=== PATIENT | male | born 1955 | race Two or more races ===

== ENCOUNTER 2017-08-13 19:01 | Emergency (ER) | payer MEDICAID ==
[~2017-08-13] VITALS: Ht 162.6 cm; Wt 79.8 kg
[2017-08-13 19:17] LABS: Urine RBC None Seen /hpf (0 - 3)
[2017-08-13 19:25] LABS: Urine Bilirubin Negative (Negative); Urine Blood Negative /uL (Negative); Urine Glucose Normal (Normal); Urine Ketone Negative (Negative); Urine Nitrite Negative (Negative); Urine Urobilinogen Normal (Negative); Urine pH 6.5 (5.0-8.0)
[2017-08-13 19:27] LABS: Urine Color Straw (Yellow)
[2017-08-13 19:27] LABS: Basophils # (auto) 0.1 uL; Eosinophils # (auto) 0.5 uL; Eosinophils % (auto) 4.6 % (0.0-7.0); Hematocrit 40.1 % (41.0-53.0); Hemoglobin 13.3 g/dL (13.5-17.5); Lymphocytes # (auto) 2.3 uL; Mean Corpuscular Hemoglobin 27.1 pg (28.0-32.0); Mean Corpuscular Hgb Conc. 33.1 g/dL (32.0-36.0); Mean Corpuscular Volume 82.1 fL (80.0-100.0); Mean Platelet Volume 8.1 fL (6.9-10.8); Monocytes # (auto) 1.1 uL; Monocytes % (auto) 11.1 % (0.0-12.0); Neutrophils # (auto) 6.3 uL; Neutrophils % (auto) 61.3 % (37.0-80.0); Nucleated Red Blood Cells % 0.3 %; Platelet Count (auto) 234 10^3/uL (140-450); Red Cell Distribution Width 14.5 % (11.8-14.3); White Blood Cell 10.3 10^3/uL (4.4-10.8)
[2017-08-13 19:48] LABS: Albumin 3.9 g/dL (3.4-5.0); BUN/Creatinine Ratio 13.3; Calcium 9.1 mg/dL (8.5-10.1)
[2017-08-13 19:51] LABS: Bilirubin, Total 0.5 mg/dL (0.2-1.0)
[2017-08-13 20:46] VITALS: BP 157/94
[2017-08-13] MEDS ORDERED: ONDANSETRON HCL 4 MG/2 ML VIAL IV ONE (21:30)
[2017-08-13] MEDS ORDERED: SODIUM CHLORIDE 0.9% 500 ML IV ONE (21:30)
== END 2017-08-13 22:23 | disposition home or self-care (01) ==
LOC: ER 19:01
DX: K52.9 Noninfective gastroenteritis and colitis, unspecified (principal)
CPT/HCPCS: 36415; 74176; 80053; 80307; 81001; 82150; 83690; 85025; 93005; 96374; 99285; J2405; J7040

== ENCOUNTER 2021-04-10 17:05 | Emergency (ER) | payer MEDICAID ==
[~2021-04-10] VITALS: Ht 175.3 cm; Wt 74.8 kg
[2021-04-10 19:56] VITALS: BP 132/82
[2021-04-10] MEDS ORDERED: MAGNESIUM CITRATE SOLUTION 300 ML BTL PO ONE (20:30)
== END 2021-04-10 20:48 | disposition home or self-care (01) ==
LOC: ER 17:05 → EDBD 17:05 → ER 20:48
DX: K59.00 Constipation, unspecified (principal); F31.9 Bipolar disorder, unspecified
CPT/HCPCS: 74176; 93005